=== PATIENT | male | born 1990 | race African-American/Black ===

== ENCOUNTER 2019-04-21 14:46 | Inpatient (IN) | payer OTHER ==
[2019-04-21 15:10] VITALS: BMI 23.7
--- NOTE | 2019-04-21 17:49 | HP ---
COWS - Scale Resting Pulse: 1= [place] 81-100 Sweatin=Flushed/Facial Moisture Restless Observation: 0= Sits Still Pupil Size: 2= Moderately Dilated (Pupils = 4 mm) Bone or Joint Aches: 1= Mild Discomfort Runny Nose/ Eye Tearin= Nasal Congestion GI Upset > 30mins: 5=Frequent Vomit/Diarrhea (Continuous, observed vomiting;) Tremor Observation: 2= Slight Tremor Visible Yawning Observation: 0= None Anxiety or Irritability: 0= None Goose Flesh Skin: 0=Smooth Skin COWS Score: 14 CIWA Score - Admission Criteria OASAS Guidelines: Admission for Medically Managed Detox: Requires at least one of the followin. CIWA greater than 12 2. Seizures within the past 24 hours 3. Delirium tremens within the past 24 hours 4. Hallucinations within the past 24 hours 5. Acute intervention needed for co occurring medical disorder 6. Acute intervention needed for co occurring psychiatric disorder 7. Severe withdrawal that cannot be handled at a lower level of care (continued vomiting, continued diarrhea, abnormal vital signs) requiring intravenous medication and/or fluids 8. Admission ROS [facility] - [facility] Chief Complaint: I'm having percocet withdrawal symptoms. Allergies/Adverse Reactions: Allergies Allergy/AdvReac Type Severity Reaction Status Date / Time clonazepam [From Klonopin] Allergy Severe Verified 04/21/19 15:04 History of Present Illness: Referred to [facility] after being seen at [facility] and treated for vomiting and abdominal pain and noted to have substance use disorder. Given Ativan and Zofran while in ED. EKG also completed while in ED. 29 yo presents now to [facility] with percocet withdrawal symptoms seeking detox. States I also need help for alcohol and marijuana. Percocet use began at age 18. Current takes 10- 10 mg tabs/day. Illicit use. States was given Suboxone Alcohol use began at age 15. States drinks 2-3 drinks q 2-3 months. Marijuana use began at age 11. Smokes $10/day ( 2 blunts) Denies nicotine use. Denies seizures or overdoses. Blackouts from drinking - last @ age [age]. PMHx: Asthma (last exacerbation as a young child); MHHx: Bi-polar. schizophrenia. Last saw a MH Provider 3-4 months ago. States not taking Seroquel x 3 -4 months. SHx: Homeless. Unemployed. Legal: Suspended license; Scheduled for incarceration in May. Search Terms: Yuniel Boo, 1990 Search Date: 04/21/2019 05:49:08 PM The Drug Utilization Report below displays all of the controlled substance prescriptions, if any, that your patient has filled in the last twelve months. The information displayed on this report is compiled from pharmacy submissions to the Department, and accurately reflects the information as submitted by the pharmacies. This report was requested by: Georgette Tyler | Reference #: [id number] There are no results for the search terms that you entered. Search Terms: Yuniel Boo, 1990 Search Date: 04/21/2019 05:53:23 PM States Searched: [place], [place], [place], [place], [place], [place], [place], [place] The Drug Utilization Report below displays the controlled substance prescriptions, if any, that were dispensed in the indicated state(s). The information displayed on this report is compiled from requests submitted to other states' PMPs, and accurately reflects the information as returned by them. Blank hammer indicate data not provided by other state. This report was requested by: Georgette Tyler | Reference #: [id number] There are no results for the search terms that you entered. Exam Limitations: Other (Vomiting) - Ebola screening Have you traveled outside of the country in the last 21 days: No Have you had contact with anyone from an Ebola affected area: No - Review of Systems Constitutional: No Symptoms Reported, Diaphoresis EENT: reports: No Symptoms Reported Respiratory: reports: No Symptoms reported Cardiac: reports: No Symptoms Reported GI: reports: Diarrhea (watery, yellowish, x 4), Nausea, Vomiting, Abdominal cramping (r/t to withdrawal) : reports: No Symptoms Reported Musculoskeletal: reports: Back Pain (r/t to withdrawal) Integumentary: reports: No Symptoms Reported Neuro: reports: Headache, Tremors Endocrine: reports: No Symptoms Reported Hematology: reports: No Symptoms Reported Psychiatric: reports: Orientated x3, Agitated, Anxious, Depressed Patient History - PPD History Previous Implant?: Yes Documented Results: Negative w/proof Implanted On Prior [facility] Admission?: No PPD to be Administered?: Yes - Smoking Cessation Smoking history: Never smoked Initiated information on smoking cessation: No - Substance & Tx. History Hx Alcohol Use: No Hx Substance Use: Yes Substance Use Type: Marijuana, Opiates Hx Substance Use Treatment: Yes (out-patient detox) - Substances abused Other Other (specify): percocet Substance route: Oral Frequency: Daily Amount used: 10 pills Age of first use: 18 Date of last use: 04/20/19 Alcohol Substance route: Oral Frequency: 1-3 times last 30 days Amount used: " I really dont drink" Age of first use: 15 Date of last use: 04/18/19 Admission Physical Exam [facility] - Vital Signs Vital Signs: Vital Signs - 24 hr 04/21/19 15:03 Temperature 96.7 F L Pulse Rate 65 Respiratory 18 Rate Blood Pressure 134/72 - Physical General Appearance: Yes: Nourished, Moderate Distress, Tremorous, Sweating ( Increased facial moisture) HEENTM: Yes: Hearing grossly Normal, Normocephalic, Normal Voice, AMY (Pupils = 4 mm), Pharynx Normal Respiratory: Yes: Lungs Clear (Pulse Ox = 99 %), Normal Breath Sounds, No Respiratory Distress Neck: Yes: No masses,lesions,Nodules, Supple Breast: Yes: Breast Exam Deferred Cardiology: Yes: Regular Rhythm, Regular Rate, S1, S2 Abdominal: Yes: Non Tender, Flat, Soft, Increased Bowel Sounds, Other ( Continuous, observed vomiting - greenish/yellowish fluid) Genitourinary: Yes: Within Normal Limits Back: Yes: Normal Inspection Musculoskeletal: Yes: full range of Motion, Gait Steady Extremities: Yes: Normal Capillary Refill, Tremors (Mild tremors) Neurological: Yes: Fully Oriented, Alert, Motor Strength 5/5, Normal Response Integumentary: Yes: Normal Color, Warm, Diaphoresis (Increased facial moisture) Lymphatic: Yes: Within Normal Limits - Diagnostic (1) Opioid dependence with withdrawal Current Visit: Yes Status: Acute (2) Alcohol abuse, uncomplicated Current Visit: Yes Status: Chronic (3) Cannabis dependence, uncomplicated Current Visit: Yes Status: Chronic Cleared for Admission [facility] - Detox or Rehab [facility] Level of Care: Medically Managed Detox Regimen/Protocol: Methadone Claeared for Rehab Admission: No Breathalyzer - Breathalyzer Breathalyzer: 0 Urine Drug Screen - Test Device Lot number: [id number] Expiration date: 12/06/20 - Control Is test valid?: Yes - Results Drug screen NEGATIVE: No Urine drug screen results: THC-Marijuana, OXY-Oxycodone Inpatient Rehab Admission - Rehab Decision to Admit Inpatient rehab admission?: No
[2019-04-21] MEDS ORDERED: BISMUTH SUBSALICYLATE 524 MG/30 ML UD PO PRN (18:27)
[2019-04-21] MEDS ORDERED: ACETAMINOPHEN 325 MG TABLET (FP) PO PRN ×2 (18:27)
[2019-04-21] MEDS ORDERED: ONDANSETRON *ODT* 4 MG TABLET SL PRN (18:27)
[2019-04-21] MEDS ORDERED: MAGNESIUM CITRATE 300 ML BOTTLE PO PRN (18:27)
[2019-04-21] MEDS ORDERED: MAGNESIUM HYDROX 2400MG/30ML ORAL SUSPENSION 30 ML CUP PO PRN (18:27)
[2019-04-21] MEDS ORDERED: IBUPROFEN 400 MG TABLET (FP) PO PRN (18:27)
[2019-04-21] MEDS ORDERED: MAG HYDROX/AL HYDROX/SIMETH 30 ML UNIT-DOSE CUP PO PRN (18:27)
[2019-04-21] MEDS ORDERED: MENTHOL/PHENOL 1 EACH UD MM PRN (18:27)
[2019-04-21] MEDS ORDERED: METHADONE HCL 10 MG TABLET (FOR DETOX USE ONLY) PO ONE (18:32)
[2019-04-21] MEDS ORDERED: cloNIDine HCL 0.1 MG TABLET PO PRN (18:32)
[2019-04-21] MEDS ORDERED: TRIMETHOBENZAMIDE HCL 200MG/2ML INJ IM ONE (19:00)
[2019-04-21] MEDS: THIAMINE HCL 100 MG TABLET (FP) PO SCH (23:09)
[2019-04-21] MEDS: chlordiazePOXIDE HCL 10 MG CAPSULE PO SCH (23:09)
[2019-04-21] MEDS: MELATONIN 5 MG TABLETS PO PRN (23:09)
[2019-04-22] MEDS: chlordiazePOXIDE HCL 10 MG CAPSULE PO SCH ×4 (05:48→23:02)
[2019-04-22 09:35] LABS: HEMOGLOBIN 14.1 GM/dL (11.7-16.9); MCH 30.8 pg (25.7-33.7); MCHC 32.8 g/dl (32.0-35.9); MEAN CELL VOLUME 93.9 fl (80-96); MEAN PLT VOLUME 9.7 fl (7.5-11.1); PLATELET COUNT 280 K/MM3 (134-434); RBC 4.58 M/mm3 (4.00-5.60); WHITE BLOOD COUNT 13.3 K/mm3 (4.0-10.0)
[2019-04-22 09:52] LABS: ALBUMIN 4.1 g/dl (3.4-5.0); BILIRUBIN,TOTAL 0.6 mg/dL (0.2-1); BLOOD UREA NITROGEN 19.4 mg/dL (7-18); CALCIUM 9.6 mg/dL (8.5-10.1); CREATININE 1.1 mg/dL (0.55-1.3); POTASSIUM 4.2 mmol/L (3.5-5.1); TOT PROT 7.7 g/dl (6.4-8.2)
[2019-04-22] MEDS: PRENATAL VITAMINS W/ FOLIC ACID TABLET (FP) PO SCH (09:54)
[2019-04-22] MEDS ORDERED: METHADONE HCL 5 MG TABLET (FOR DETOX USE ONLY) PO ONE (10:00)
[2019-04-22] MEDS ORDERED: guaiFENesin 200 MG/10 ML 10 ML UNIT-DOSE CUPS PO PRN (10:50)
--- NOTE | 2019-04-22 14:24 | PN ---
BHS COWS - Scale Resting Pulse: 0= [place] 80 or Below Sweatin= No chills or Flushing Restless Observation: 1= Difficult to Sit Still Pupil Size: 0= Normal to Room Light Bone or Joint Aches: 1= Mild Discomfort Runny Nose/ Eye Tearin= None GI Upset > 30mins: 1= Stomach Cramp Tremor Observation of Outstretched Hands: 0= None Yawning Observation: 1= 1-2x During Session Anxiety or Irritability: 2=Irritable/Anxious Goose Flesh Skin: 3=Piloerection COWS Score: 9 BHS Progress Note (SOAP) Subjective: Anxious, Stomach Cramping, Interrupted Sleep. Objective: PATIENT A & O X 3, OBSERVED AMBULATING ON DETOX UNIT UNASSISTED. IN NO ACUTE DISTRESS. PATIENT AFEBRILE. 04/22/19 14:22 Vital Signs Temperature 97.5 F L 04/22/19 13:03 Pulse Rate 66 04/22/19 13:03 Respiratory Rate 18 04/22/19 13:03 Blood Pressure 123/69 04/22/19 13:03 O2 Sat by Pulse Oximetry (%) Laboratory Tests 04/22/19 04/22/19 04/22/19 07:50 07:50 07:50 WBC 13.3 H RBC 4.58 Hgb 14.1 Hct 43.0 MCV 93.9 MCH 30.8 MCHC 32.8 RDW 14.0 Plt Count 280 MPV 9.7 Sodium 139 Potassium 4.2 Chloride 101 Carbon Dioxide 27 Anion Gap 11 BUN 19.4 H Creatinine 1.1 Est GFR (CKD-EPI)AfAm 104.59 Est GFR (CKD-EPI)NonAf 90.24 Random Glucose 96 Calcium 9.6 Total Bilirubin 0.6 AST 25 ALT 31 Alkaline Phosphatase 79 Total Protein 7.7 Albumin 4.1 RPR Titer Nonreactive LABS NOTED. 04/22/19 14:25 Assessment: 04/22/19 14:23 WITHDRAWAL SYMPTOMS. LEUKOCYTOSIS. 04/22/19 14:23 Plan: CONTINUE DETOX. INCREASE DAILY PO WATER INTAKE. PATIENT DENIES HISTORY OF IVDU. PATIENT DENIES ANY UNUSUAL URINARY COMPLAINTS (BURNING, PAIN, FREQUENCY, URGENCY , HESITANCY, VISUALIZATION OF BLOOD IN URINE). PATIENT DENIES SOB AND CHEST PAIN. REPEAT CBC, UA ORDERED FOR TOMORROW AM DUE TO ELEVATED WBC LEVEL NOTED ON DETOX ADMISSION LABORATORY ASSESSMENT.
--- NOTE | 2019-04-22 15:46 | CONSULT ---
[facility] Psychiatric Consult - Data Date of interview: 04/22/19 Admission source: [facility] Identifying data: First visit at [facility] for this 29 y/o AA male self-referred for detoxification (ELVIN issues : alcohol, opioid, cannabis). Examined at [address] [place] [address]. Patient is single, no children, homeless, unemployed and dependent on relatives for financial support. Substance Abuse History: Discussed with the patient. Details in current [facility] report as follows : Smoking history: Never smoked. Initiated information on smoking cessation: No. Substance & Tx. History. Hx Alcohol Use: No. Hx Substance Use: Yes. Substance Use Type: Marijuana, Opiates. Hx Substance Use Treatment: Yes (out-patient detox). - Substances abused. Other. Other ( specify): percocet. Substance route: Oral. Frequency: Daily. Amount used: 10 pills. Age of first use: 18. Date of last use: 04/20/19. Alcohol. Substance route: Oral. Frequency: 1-3 times last 30 days. Amount used: " I really dont drink". Age of first use: 15. Date of last use: 04/18/19 Medical History: Bronchial asthma. Psychiatric History: Patient admits to a history of multiple psychiatric hospitalizations ([facility], [facility]). Diagnosed with schizophrenia. Mr Boo states that he has not taken medications (seroquel , depakote, haldol) for several weeks. No recall of location/name of OPD clinic. Denies recent contact with psychiatrists. No history of suicide attempts. Physical/Sexual Abuse/Trauma History: Patient declines to discuss this domain. Mr Boo reports that he was given the choice between admission to a hospital or incarceration. Additional Comment: Urine drug screen results: THC-Marijuana, OXY-Oxycodone. Noted. Mental Status Exam - Mental Status Exam Alert and Oriented to: Time, Place, Person Cognitive Function: Good Patient Appearance: Well Groomed Mood: Withdrawn Affect: Blunted Patient Behavior: Passive, Guarded Speech Pattern: Clear Voice Loudness: Normal Thought Process: Circumstantial Hallucinations: Denies Suicidal Ideation: Denies Homicidal Ideation: Denies Insight/Judgement: Poor Sleep: Well Appetite: Good Muscle strength/Tone: Normal Gait/Station: Normal Psychiatric Findings - Problem List ([place] 1, 2,3) (1) Schizophrenia Current Visit: Yes Status: Chronic Comment: As per self-report. (2) Opioid dependence with withdrawal Current Visit: Yes Status: Acute (3) Alcohol abuse, uncomplicated Current Visit: Yes Status: Chronic (4) Cannabis dependence, uncomplicated Current Visit: Yes Status: Chronic (5) Substance induced mood disorder Current Visit: Yes Status: Chronic (6) Non-compliance Current Visit: Yes Status: Chronic - Initial Treatment Plan Initial Treatment Plan: Psychoeducation. Sleep hygiene. Detoxification. Patient agrees to restart seroquel 100 mg po bid. Side effects/benefits are discussed with the patient. Observation.
[2019-04-22] MEDS: THIAMINE HCL 100 MG TABLET (FP) PO SCH (22:00)
[2019-04-22] MEDS: MELATONIN 5 MG TABLETS PO PRN (22:00)
[2019-04-22] MEDS: QUEtiapine FUMARATE 100 MG TABLET (FP) PO SCH (22:00)
[2019-04-23] MEDS: chlordiazePOXIDE HCL 10 MG CAPSULE PO SCH ×4 (05:16→23:03)
[2019-04-23] MEDS ORDERED: METHADONE HCL 10 MG TABLET (FOR DETOX USE ONLY) PO ONE (10:00)
[2019-04-23] MEDS: PRENATAL VITAMINS W/ FOLIC ACID TABLET (FP) PO SCH (10:02)
[2019-04-23] MEDS: QUEtiapine FUMARATE 100 MG TABLET (FP) PO SCH ×2 (10:02→22:03)
--- NOTE | 2019-04-23 11:44 | PN ---
BHS COWS - Scale Resting Pulse: 0= [place] 80 or Below Sweatin= Chills/Flushing Restless Observation: 1= Difficult to Sit Still Pupil Size: 0= Normal to Room Light Bone or Joint Aches: 1= Mild Discomfort Runny Nose/ Eye Tearin= Runny Nose/Eyes GI Upset > 30mins: 1= Stomach Cramp Tremor Observation of Outstretched Hands: 0= None Yawning Observation: 0= None Anxiety or Irritability: 2=Irritable/Anxious Goose Flesh Skin: 0=Smooth Skin COWS Score: 8 BHS Progress Note (SOAP) Subjective: patient is here for opioid detox w/ methadone d/t opioid use disorder c/o anxious, fatigue, constipation, interrupted sleep Objective: 04/23/19 11:39 Vital Signs Temperature 97.4 F L 04/23/19 09:11 Pulse Rate 76 04/23/19 09:11 Respiratory Rate 18 04/23/19 09:11 Blood Pressure 114/75 04/23/19 09:11 O2 Sat by Pulse Oximetry (%) Laboratory Last Values WBC 13.3 K/mm3 (4.0-10.0) H 04/22/19 07:50 RBC 4.58 M/mm3 (4.00-5.60) 04/22/19 07:50 Hgb 14.1 GM/dL (11.7-16.9) 04/22/19 07:50 Hct 43.0 % (35.4-49) 04/22/19 07:50 MCV 93.9 fl (80-96) 04/22/19 07:50 MCH 30.8 pg (25.7-33.7) 04/22/19 07:50 MCHC 32.8 g/dl (32.0-35.9) 04/22/19 07:50 RDW 14.0 % (11.9-15.9) 04/22/19 07:50 Plt Count 280 K/MM3 (134-434) 04/22/19 07:50 MPV 9.7 fl (7.5-11.1) 04/22/19 07:50 Sodium 139 mmol/L (136-145) 04/22/19 07:50 Potassium 4.2 mmol/L (3.5-5.1) 04/22/19 07:50 Chloride 101 mmol/L (98-107) 04/22/19 07:50 Carbon Dioxide 27 mmol/L (21-32) 04/22/19 07:50 Anion Gap 11 MMOL/L (8-16) 04/22/19 07:50 BUN 19.4 mg/dL (7-18) H 04/22/19 07:50 Creatinine 1.1 mg/dL (0.55-1.3) 04/22/19 07:50 Est GFR (CKD-EPI)AfAm 104.59 04/22/19 07:50 Est GFR (CKD-EPI)NonAf 90.24 04/22/19 07:50 Random Glucose 96 mg/dL (74-106) 04/22/19 07:50 Calcium 9.6 mg/dL (8.5-10.1) 04/22/19 07:50 Total Bilirubin 0.6 mg/dL (0.2-1) 04/22/19 07:50 AST 25 U/L (15-37) 04/22/19 07:50 ALT 31 U/L (13-61) 04/22/19 07:50 Alkaline Phosphatase 79 U/L (45-117) 04/22/19 07:50 Total Protein 7.7 g/dl (6.4-8.2) 04/22/19 07:50 Albumin 4.1 g/dl (3.4-5.0) 04/22/19 07:50 RPR Titer Nonreactive (NONREACTIVE) 04/22/19 07:50 repeat labs pending Assessment: 04/23/19 11:41 Aox3 no acute distress no adventitious breath sounds Full ROM no gait disturbance withdrawal sx Plan: increase fluids continue detox continue to monitor
[2019-04-23 12:01] LABS: BASO % 0.7 % (0-2.0); EOS % 1.7 % (0-4.5); HEMATOCRIT 39.7 % (35.4-49); HEMOGLOBIN 13.4 GM/dL (11.7-16.9); LYMPH % 43.7 % (8-40); MCH 31.3 pg (25.7-33.7); MCHC 33.7 g/dl (32.0-35.9); MEAN CELL VOLUME 92.8 fl (80-96); MEAN PLT VOLUME 9.3 fl (7.5-11.1); MONO % 8.7 % (3.8-10.2); NEUT % 45.2 % (42.8-82.8); PLATELET COUNT 258 K/MM3 (134-434); RBC 4.28 M/mm3 (4.00-5.60); RDW 13.7 % (11.9-15.9); WHITE BLOOD COUNT 8.4 K/mm3 (4.0-10.0)
[2019-04-23] MEDS: THIAMINE HCL 100 MG TABLET (FP) PO SCH (22:02)
[2019-04-24] MEDS ORDERED: chlordiazePOXIDE 5 MG CAPSULE PO PRN (00:01)
[2019-04-24] MEDS ORDERED: METHADONE HCL 5 MG TABLET (FOR DETOX USE ONLY) PO ONE (06:00)
[2019-04-24 09:07] VITALS: BP 114/80; PULSE 87; TEMP 97.4
--- NOTE | 2019-04-24 09:15 | DS ---
[facility] Detox Discharge Summary Admission Date: 04/21/19 Discharge Date: 04/24/19 - History Present History: Alcohol Dependence, Opioid Dependence Additional Comments: 29 years old male admitted on 04/21/19 for alcohol and opioid withdrawal sx management did well with librium and methadone detox regimen alert oriented x 3 ambulating steady gait prefers to go to [facility] respiratory: clear lung bilaterally on auscultation abdomen soft no rebound tenderness extremities full range of motion skin warm and dry - Physical Exam Results Vital Signs: Vital Signs Temperature 97.4 F L 04/24/19 09:06 Pulse Rate 87 04/24/19 09:06 Respiratory Rate 18 04/24/19 09:06 Blood Pressure 114/80 04/24/19 09:06 O2 Sat by Pulse Oximetry (%) Pertinent Admission Physical Exam Findings: alcohol and opiate withdrawal sx Vital Signs Temperature 97.4 F L 04/24/19 09:06 Pulse Rate 87 04/24/19 09:06 Respiratory Rate 18 04/24/19 09:06 Blood Pressure 114/80 04/24/19 09:06 O2 Sat by Pulse Oximetry (%) Laboratory Last Values WBC 8.4 K/mm3 (4.0-10.0) 04/23/19 08:00 RBC 4.28 M/mm3 (4.00-5.60) 04/23/19 08:00 Hgb 13.4 GM/dL (11.7-16.9) 04/23/19 08:00 Hct 39.7 % (35.4-49) 04/23/19 08:00 MCV 92.8 fl (80-96) 04/23/19 08:00 MCH 31.3 pg (25.7-33.7) 04/23/19 08:00 MCHC 33.7 g/dl (32.0-35.9) 04/23/19 08:00 RDW 13.7 % (11.9-15.9) 04/23/19 08:00 Plt Count 258 K/MM3 (134-434) 04/23/19 08:00 MPV 9.3 fl (7.5-11.1) 04/23/19 08:00 Absolute Neuts (auto) 3.8 K/mm3 (1.5-8.0) 04/23/19 08:00 Neutrophils % 45.2 % (42.8-82.8) 04/23/19 08:00 Lymphocytes % 43.7 % (8-40) H 04/23/19 08:00 Monocytes % 8.7 % (3.8-10.2) 04/23/19 08:00 Eosinophils % 1.7 % (0-4.5) 04/23/19 08:00 Basophils % 0.7 % (0-2.0) 04/23/19 08:00 Nucleated RBC % 0 % (0-0) 04/23/19 08:00 Sodium 139 mmol/L (136-145) 04/22/19 07:50 Potassium 4.2 mmol/L (3.5-5.1) 04/22/19 07:50 Chloride 101 mmol/L (98-107) 04/22/19 07:50 Carbon Dioxide 27 mmol/L (21-32) 04/22/19 07:50 Anion Gap 11 MMOL/L (8-16) 04/22/19 07:50 BUN 19.4 mg/dL (7-18) H 04/22/19 07:50 Creatinine 1.1 mg/dL (0.55-1.3) 04/22/19 07:50 Est GFR (CKD-EPI)AfAm 104.59 04/22/19 07:50 Est GFR (CKD-EPI)NonAf 90.24 04/22/19 07:50 Random Glucose 96 mg/dL (74-106) 04/22/19 07:50 Calcium 9.6 mg/dL (8.5-10.1) 04/22/19 07:50 Total Bilirubin 0.6 mg/dL (0.2-1) 04/22/19 07:50 AST 25 U/L (15-37) 04/22/19 07:50 ALT 31 U/L (13-61) 04/22/19 07:50 Alkaline Phosphatase 79 U/L (45-117) 04/22/19 07:50 Total Protein 7.7 g/dl (6.4-8.2) 04/22/19 07:50 Albumin 4.1 g/dl (3.4-5.0) 04/22/19 07:50 RPR Titer Nonreactive (NONREACTIVE) 04/22/19 07:50 lab noted - Treatment Hospital Course: Detox Protocol Followed, Detoxed Safely, Responded well, Discharged Condition Good, Rehab Referral Accepted Patient has Accepted a Rehab Referral to: [facility] - Medication Discharge Medications: Ambulatory Orders Naloxone HCl [Narcan] 4 mg NS ASDIR PRN #1 spray 04/24/19 - Diagnosis (1) Opioid dependence with withdrawal Current Visit: Yes Status: Acute (2) Alcohol abuse, uncomplicated Current Visit: Yes Status: Acute (3) Substance induced mood disorder Current Visit: Yes Status: Suspected - AMA Did Patient Leave Against Medical Advice: No CIWA Score - CIWA Score Nausea/Vomitin-No Nausea/No Vomiting Muscle Tremors: 2 Anxiety: 2 Agitation: 2 Paroxysmal Sweats: No Perspiration Orientation: 0-Oriented Tacttile Disturbances: 0-None Auditory Disturbances: 0-None Visual Disturbances: 0-None Headache: 0-None Present CIWA-Ar Total Score: 6 COWS (PN) - Opiate Withdrawal Resting Pulse: 1= [place] 81-100 Sweatin= Chills/Flushing Restless Observation: 0= Sits Still Pupil Size: 0= Normal to Room Light Bone or Joint Aches: 1= Mild Discomfort Runny Nose/ Eye Tearin= None GI Upset > 30mins: 0= None Tremor Observation of Outstretched Hands: 0= None Yawning Observation: 0= None Anxiety or Irritability: 1=Feels Anxious/Irritable Goose Flesh Skin: 0=Smooth Skin COWS Score: 4
[2019-04-24] MEDS: QUEtiapine FUMARATE 100 MG TABLET (FP) PO SCH (10:26)
[2019-04-24] MEDS: PRENATAL VITAMINS W/ FOLIC ACID TABLET (FP) PO SCH (10:26)
== END 2019-04-24 11:23 | disposition home or self-care (01) | DRG 773 ==
LOC: YASAS 14:46 → Y3N 19:59
PROVIDERS: ADMIT Allergy & Immunology; ATTEND Allergy & Immunology
PROC: HZ2ZZZZ Detoxification Services for Substance Abuse Treatment (ICD-10-PCS; principal; 2019-04-21)
DX: F10.230 Alcohol dependence with withdrawal, uncomplicated (principal); F11.23 Opioid dependence with withdrawal; F12.20 Cannabis dependence, uncomplicated; F19.24 Other psychoactive substance dependence with psychoactive substance-induced mood disorder; F20.9 Schizophrenia, unspecified; F31.9 Bipolar disorder, unspecified; D72.829 Elevated white blood cell count, unspecified; Z88.8 Allergy status to other drugs, medicaments and biological substances; Z87.09 Personal history of other diseases of the respiratory system; Z59.0 Homelessness; Z91.19 Patient's noncompliance with other medical treatment and regimen
CPT/HCPCS: 36415; 80053; 85025; 85027; 86593

== ENCOUNTER 2019-04-28 16:15 | Inpatient (IN) | payer OTHER ==
[2019-04-28 21:03] VITALS: BMI 24.7
--- NOTE | 2019-04-29 00:05 | HP ---
COWS - Scale Resting Pulse: 0= [place] 80 or Below Sweatin=Flushed/Facial Moisture Restless Observation: 0= Sits Still Pupil Size: 1= Pupils >than Normal Bone or Joint Aches: 4=Acute Joint/Muscle Pain Runny Nose/ Eye Tearin= Runny Nose/Eyes GI Upset > 30mins: 3= Vomiting/Diarrhea (vomiting x 3) Tremor Observation: 2= Slight Tremor Visible Yawning Observation: 1= 1-2x During Session Anxiety or Irritability: 1=Feels Anxious/Irritable Goose Flesh Skin: 3=Piloerection COWS Score: 19 CIWA Score - Admission Criteria OASAS Guidelines: Admission for Medically Managed Detox: Requires at least one of the followin. CIWA greater than 12 2. Seizures within the past 24 hours 3. Delirium tremens within the past 24 hours 4. Hallucinations within the past 24 hours 5. Acute intervention needed for co occurring medical disorder 6. Acute intervention needed for co occurring psychiatric disorder 7. Severe withdrawal that cannot be handled at a lower level of care (continued vomiting, continued diarrhea, abnormal vital signs) requiring intravenous medication and/or fluids 8. Admitting History and Physical - Smoking History Smoking history: Never smoked - Alcohol/Substance Use Hx Alcohol Use: No Admission ROS S - HPI Chief Complaint: OPioid (Percocet) withdrawal symptoms Allergies/Adverse Reactions: Allergies Allergy/AdvReac Type Severity Reaction Status Date / Time clonazepam [From Klonopin] Allergy Severe Verified 04/28/19 20:49 Egg Derived Allergy Mild Vomiting Verified 04/28/19 20:49 History of Present Illness: 29 years old male with 9 years of opioid (Percocet) abuse is seeking admission to detox. Patient was admitted in detox for the period 04/21/2019- 04/24/2019. Patient reports that his detoxification was inadequate because he was discharged too early and relapsed as soon as he left detox. He is being admitted because he is in acute withdrawal at this time. He has medical history of asthma and denies suicidal ideation at this time Exam Limitations: Clinical Condition - Ebola screening Have you traveled outside of the country in the last 21 days: No Have you had contact with anyone from an Ebola affected area: No Do you have a fever: No - Review of Systems Constitutional: Loss of Appetite, Changes in sleep EENT: reports: No Symptoms Reported Respiratory: reports: No Symptoms reported Cardiac: reports: No Symptoms Reported GI: reports: Nausea, Poor Appetite, Poor Fluid Intake, Vomiting, Abdominal cramping : reports: No Symptoms Reported Musculoskeletal: reports: Back Pain, Joint Pain Integumentary: reports: Dryness, Flushing Neuro: reports: No Symptoms reported, Tremors Endocrine: reports: No Symptoms Reported Hematology: reports: No Symptoms Reported Psychiatric: reports: No Sypmtoms Reported, Anxious, Depressed Other Systems: Reviewed and Negative Patient History - Patient Medical History Hx Anemia: No Hx Asthma: Yes (Albuterol) Hx Chronic Obstructive Pulmonary Disease (COPD): No Hx Cancer: No Hx Cardiac Disorders: No Hx Hypertension: No Hx Hypercholesterolemia: No Hx Pacemaker: No HX Cerebrovascular Accident: No Hx Seizures: No Hx Diabetes: No Hx Gastrointestinal Disorders: No Hx Genitourinary Disorders: No Hx Sexually Transmitted Disorders: No Hx Renal Disease (ESRD): No Hx Thyroid Disease: No Hx Human Immunodeficiency Virus (HIV): No (Negative 2018) Hx Hepatitis C: No Hx Depression: Yes Hx Suicide Attempt: No Hx Bipolar Disorder: No Hx Schizophrenia: No - Patient Surgical History Past Surgical History: Yes - PPD History Previous Implant?: No Documented Results: Positive w/proof Implanted On Prior R Admission?: Yes Date: 04/23/19 PPD to be Administered?: No - Reproductive History Patient is a Female of Child Bearing Age (11 -55 yrs old): No (MALE) - Smoking Cessation Smoking history: Never smoked - Substance & Tx. History Hx Alcohol Use: No Substance Use Type: Opiates Hx Substance Use Treatment: No - Substances abused Other Other (specify): percocet Substance route: Oral Frequency: Daily Amount used: 7 pills Age of first use: 18 Date of last use: 04/27/19 Alcohol Substance route: Oral Frequency: 1-3 times last 30 days Amount used: " I really dont drink" Age of first use: 15 Date of last use: 04/18/19 Admission Physical Exam BHS - Vital Signs Vital Signs: Vital Signs - 24 hr 04/28/19 20:58 Temperature 99.5 F Pulse Rate 74 Respiratory 14 Rate Blood Pressure 143/63 - Physical General Appearance: Yes: Within Normal Limits, Nourished, Appropriately Dressed HEENTM: Yes: EOMI, Normal ENT Inspection, Normal Voice, AMY Respiratory: Yes: Lungs Clear, Normal Breath Sounds, No Respiratory Distress Neck: Yes: Supple Breast: Yes: Breast Exam Deferred Cardiology: Yes: Within Normal Limits, Regular Rhythm, Regular Rate Abdominal: Yes: Normal Bowel Sounds, Soft Genitourinary: Yes: Within Normal Limits Back: Yes: Normal Inspection Musculoskeletal: Yes: Within Normal Limits Extremities: Yes: Tremors Neurological: Yes: Within Normal Limits Integumentary: Yes: Warm Lymphatic: Yes: Within Normal Limits - Diagnostic (1) Opioid dependence with withdrawal Current Visit: No Status: Acute (2) Cannabis dependence, uncomplicated Current Visit: No Status: Chronic (3) Nicotine dependence Current Visit: Yes Status: Chronic Qualifiers: Nicotine product type: cigarettes Substance use status: uncomplicated Qualified Code(s): F17.210 - Nicotine dependence, cigarettes, uncomplicated Cleared for Admission [facility] - Detox or Rehab [facility] Level of Care: Medically Managed Detox Regimen/Protocol: Methadone Claeared for Rehab Admission: No Breathalyzer - Breathalyzer Breathalyzer: 0 Urine Drug Screen - Test Device Lot number: [id number] Expiration date: 01/05/21 - Control Is test valid?: Yes - Results Drug screen NEGATIVE: Yes Urine drug screen results: THC-Marijuana, OXY-Oxycodone, BZO-Benzodiazepines Inpatient Rehab Admission - Rehab Decision to Admit Inpatient rehab admission?: No
[2019-04-29] MEDS ORDERED: METHADONE HCL 10 MG TABLET (FOR DETOX USE ONLY) PO ONE (00:35)
[2019-04-29] MEDS ORDERED: cloNIDine HCL 0.1 MG TABLET PO PRN ×2 (00:35→13:39)
[2019-04-29] MEDS ORDERED: MAGNESIUM CITRATE 300 ML BOTTLE PO PRN (00:36)
[2019-04-29] MEDS ORDERED: IBUPROFEN 400 MG TABLET (FP) PO PRN (00:36)
[2019-04-29] MEDS ORDERED: MAG HYDROX/AL HYDROX/SIMETH 30 ML UNIT-DOSE CUP PO PRN (00:36)
[2019-04-29] MEDS ORDERED: ACETAMINOPHEN 325 MG TABLET (FP) PO PRN ×2 (00:36)
[2019-04-29] MEDS ORDERED: MENTHOL/PHENOL 1 EACH UD MM PRN (00:36)
[2019-04-29] MEDS ORDERED: MELATONIN 5 MG TABLETS PO PRN (00:36)
[2019-04-29] MEDS ORDERED: NICOTINE POLACRILEX 2 MG GUM BUC PRN (00:36)
[2019-04-29] MEDS ORDERED: MAGNESIUM HYDROX 2400MG/30ML ORAL SUSPENSION 30 ML CUP PO PRN (00:36)
[2019-04-29] MEDS ORDERED: METHOCARBAMOL 500 MG TABLET PO PRN (00:36)
[2019-04-29] MEDS ORDERED: BISMUTH SUBSALICYLATE 524 MG/30 ML UD PO PRN (00:36)
[2019-04-29] MEDS: PRENATAL VITAMINS W/ FOLIC ACID TABLET (FP) PO SCH (09:24)
[2019-04-29] MEDS: NICOTINE 14 MG/24 HOURS TOPICAL PATCH TD SCH (09:24)
--- NOTE | 2019-04-29 11:36 | PN ---
[facility]HS COWS - Scale Resting Pulse: 1= [place] 81-100 Sweatin= Chills/Flushing Restless Observation: 0= Sits Still Pupil Size: 1= Pupils >than Normal Bone or Joint Aches: 2= Severe Diffuse Aches Runny Nose/ Eye Tearin= Nasal Congestion GI Upset > 30mins: 2= Nausea/Diarrhea (no diarrhea) Tremor Observation of Outstretched Hands: 2= Slight Tremor Visible Yawning Observation: 2= >3x During Session Anxiety or Irritability: 2=Irritable/Anxious Goose Flesh Skin: 3=Piloerection COWS Score: 17 S Progress Note (SOAP) Subjective: doing well with methadone detox regimen ate breakfast ambulating on hallway discuss medication assisted treatment program Objective: 04/29/19 11:38 Vital Signs Temperature 97.1 F L 04/29/19 09:16 Pulse Rate 81 04/29/19 09:16 Respiratory Rate 18 04/29/19 09:16 Blood Pressure 113/71 04/29/19 09:16 O2 Sat by Pulse Oximetry (%) 04/29/19 11:38 lab pending Assessment: 04/29/19 11:39 opiate withdrawal sx Plan: continue methadone detox regimen
--- NOTE | 2019-04-29 12:12 | EKG ---
Test Reason : Blood Pressure : / mmHG Vent. Rate : 057 BPM Atrial Rate : 057 BPM P-R Int : 156 ms QRS Dur : 090 ms QT Int : 378 ms P-R-T Axes : 068 061 053 degrees QTc Int : 367 ms SINUS BRADYCARDIA MODERATE VOLTAGE CRITERIA FOR LVH, MAY BE NORMAL VARIANT BORDERLINE ECG NO PREVIOUS ECGS AVAILABLE Confirmed by Jason Carter MD ([id number]) on 04/29/2019 12:11:52 PM Referred By: DELMIS Confirmed By:Jason Carter MD
[2019-04-29] MEDS ORDERED: diazePAM 5 MG TABLET PO PRN (12:47)
[2019-04-29] MEDS: THIAMINE HCL 100 MG TABLET (FP) PO SCH (22:26)
[2019-04-29] MEDS: hydrOXYzine PAMOATE 25 MG CAPSULE (FP) PO PRN (22:26)
[2019-04-30 09:45] LABS: HEMATOCRIT 38.4 % (35.4-49); HEMOGLOBIN 12.7 GM/dL (11.7-16.9); MCHC 33.2 g/dl (32.0-35.9); MEAN CELL VOLUME 93.5 fl (80-96); MEAN PLT VOLUME 9.5 fl (7.5-11.1); PLATELET COUNT 238 K/MM3 (134-434); RBC 4.11 M/mm3 (4.00-5.60); RDW 13.6 % (11.9-15.9); WHITE BLOOD COUNT 6.8 K/mm3 (4.0-10.0)
[2019-04-30] MEDS ORDERED: METHADONE HCL 5 MG TABLET (FOR DETOX USE ONLY) PO ONE (10:00)
[2019-04-30] MEDS: NICOTINE 14 MG/24 HOURS TOPICAL PATCH TD SCH (10:31)
[2019-04-30] MEDS: PRENATAL VITAMINS W/ FOLIC ACID TABLET (FP) PO SCH (10:31)
[2019-04-30 10:35] LABS: ALBUMIN 3.4 g/dl (3.4-5.0); BILIRUBIN,TOTAL 0.4 mg/dL (0.2-1); BLOOD UREA NITROGEN 9.5 mg/dL (7-18); CALCIUM 9.3 mg/dL (8.5-10.1); CREATININE 0.8 mg/dL (0.55-1.3); POTASSIUM 4.6 mmol/L (3.5-5.1); TOT PROT 6.4 g/dl (6.4-8.2)
--- NOTE | 2019-04-30 12:23 | PN ---
BHS COWS - Scale Resting Pulse: 0= [place] 80 or Below Sweatin= Chills/Flushing Restless Observation: 0= Sits Still Pupil Size: 1= Pupils >than Normal Bone or Joint Aches: 1= Mild Discomfort Runny Nose/ Eye Tearin= Nasal Congestion GI Upset > 30mins: 0= None Tremor Observation of Outstretched Hands: 1= Tremor [place], Not Seen Yawning Observation: 0= None Anxiety or Irritability: 2=Irritable/Anxious Goose Flesh Skin: 3=Piloerection COWS Score: 10 BHS Progress Note (SOAP) Subjective: doing well with methadone detox regimen less tremor mild anxiety able to sitting on chair sleep better at night Objective: 04/30/19 12:30 Vital Signs Temperature 97.0 F L 04/30/19 09:14 Pulse Rate 67 04/30/19 09:14 Respiratory Rate 18 04/30/19 09:14 Blood Pressure 116/64 04/30/19 09:14 O2 Sat by Pulse Oximetry (%) Laboratory Last Values WBC 6.8 K/mm3 (4.0-10.0) 04/30/19 08:15 RBC 4.11 M/mm3 (4.00-5.60) 04/30/19 08:15 Hgb 12.7 GM/dL (11.7-16.9) 04/30/19 08:15 Hct 38.4 % (35.4-49) 04/30/19 08:15 MCV 93.5 fl (80-96) 04/30/19 08:15 MCH 31.0 pg (25.7-33.7) 04/30/19 08:15 MCHC 33.2 g/dl (32.0-35.9) 04/30/19 08:15 RDW 13.6 % (11.9-15.9) 04/30/19 08:15 Plt Count 238 K/MM3 (134-434) 04/30/19 08:15 MPV 9.5 fl (7.5-11.1) 04/30/19 08:15 Sodium 141 mmol/L (136-145) 04/30/19 08:15 Potassium 4.6 mmol/L (3.5-5.1) 04/30/19 08:15 Chloride 104 mmol/L (98-107) 04/30/19 08:15 Carbon Dioxide 32 mmol/L (21-32) 04/30/19 08:15 Anion Gap 5 MMOL/L (8-16) L 04/30/19 08:15 BUN 9.5 mg/dL (7-18) 04/30/19 08:15 Creatinine 0.8 mg/dL (0.55-1.3) 04/30/19 08:15 Est GFR (CKD-EPI)AfAm 139.91 04/30/19 08:15 Est GFR (CKD-EPI)NonAf 120.72 04/30/19 08:15 Random Glucose 84 mg/dL (74-106) 04/30/19 08:15 Calcium 9.3 mg/dL (8.5-10.1) 04/30/19 08:15 Total Bilirubin 0.4 mg/dL (0.2-1) 04/30/19 08:15 AST 16 U/L (15-37) 04/30/19 08:15 ALT 21 U/L (13-61) 04/30/19 08:15 Alkaline Phosphatase 60 U/L (45-117) 04/30/19 08:15 Total Protein 6.4 g/dl (6.4-8.2) 04/30/19 08:15 Albumin 3.4 g/dl (3.4-5.0) 04/30/19 08:15 RPR Titer Nonreactive (NONREACTIVE) 04/30/19 08:15 lab noted Assessment: 04/30/19 12:30 opiate withdrawal sx Plan: continue methadone detox regimen
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
[2019-04-30] MEDS: THIAMINE HCL 100 MG TABLET (FP) PO SCH (22:18)
[2019-04-30] MEDS: hydrOXYzine PAMOATE 25 MG CAPSULE (FP) PO PRN (22:18)
[2019-05-01 09:23] VITALS: BP 121/73; PULSE 60; TEMP 96.4
[2019-05-01] MEDS ORDERED: METHADONE HCL 10 MG TABLET (FOR DETOX USE ONLY) PO ONE (10:00)
[2019-05-01] MEDS: NICOTINE 14 MG/24 HOURS TOPICAL PATCH TD SCH (10:30)
[2019-05-01] MEDS: PRENATAL VITAMINS W/ FOLIC ACID TABLET (FP) PO SCH (10:30)
--- NOTE | 2019-05-01 11:04 | PN ---
BHS COWS - Scale Resting Pulse: 0= [place] 80 or Below Sweatin= Chills/Flushing Restless Observation: 0= Sits Still Pupil Size: 0= Normal to Room Light Bone or Joint Aches: 1= Mild Discomfort Runny Nose/ Eye Tearin= None GI Upset > 30mins: 1= Stomach Cramp Tremor Observation of Outstretched Hands: 1= Tremor [place], Not Seen Yawning Observation: 0= None Anxiety or Irritability: 1=Feels Anxious/Irritable Goose Flesh Skin: 0=Smooth Skin COWS Score: 5 BHS Progress Note (SOAP) Subjective: doing well with methadone detox regimen mild body aches discuss aftercare with staff encourage medication assisted treatment program Objective: 05/01/19 11:03 Vital Signs Temperature 96.4 F L 05/01/19 09:22 Pulse Rate 60 05/01/19 09:22 Respiratory Rate 18 05/01/19 09:22 Blood Pressure 121/73 05/01/19 09:22 O2 Sat by Pulse Oximetry (%) Laboratory Last Values WBC 6.8 K/mm3 (4.0-10.0) 04/30/19 08:15 RBC 4.11 M/mm3 (4.00-5.60) 04/30/19 08:15 Hgb 12.7 GM/dL (11.7-16.9) 04/30/19 08:15 Hct 38.4 % (35.4-49) 04/30/19 08:15 MCV 93.5 fl (80-96) 04/30/19 08:15 MCH 31.0 pg (25.7-33.7) 04/30/19 08:15 MCHC 33.2 g/dl (32.0-35.9) 04/30/19 08:15 RDW 13.6 % (11.9-15.9) 04/30/19 08:15 Plt Count 238 K/MM3 (134-434) 04/30/19 08:15 MPV 9.5 fl (7.5-11.1) 04/30/19 08:15 Sodium 141 mmol/L (136-145) 04/30/19 08:15 Potassium 4.6 mmol/L (3.5-5.1) 04/30/19 08:15 Chloride 104 mmol/L (98-107) 04/30/19 08:15 Carbon Dioxide 32 mmol/L (21-32) 04/30/19 08:15 Anion Gap 5 MMOL/L (8-16) L 04/30/19 08:15 BUN 9.5 mg/dL (7-18) 04/30/19 08:15 Creatinine 0.8 mg/dL (0.55-1.3) 04/30/19 08:15 Est GFR (CKD-EPI)AfAm 139.91 04/30/19 08:15 Est GFR (CKD-EPI)NonAf 120.72 04/30/19 08:15 Random Glucose 84 mg/dL (74-106) 04/30/19 08:15 Calcium 9.3 mg/dL (8.5-10.1) 04/30/19 08:15 Total Bilirubin 0.4 mg/dL (0.2-1) 04/30/19 08:15 AST 16 U/L (15-37) 04/30/19 08:15 ALT 21 U/L (13-61) 04/30/19 08:15 Alkaline Phosphatase 60 U/L (45-117) 04/30/19 08:15 Total Protein 6.4 g/dl (6.4-8.2) 04/30/19 08:15 Albumin 3.4 g/dl (3.4-5.0) 04/30/19 08:15 RPR Titer Nonreactive (NONREACTIVE) 04/30/19 08:15 lab noted Assessment: 05/01/19 11:03 opiate withdrawal sx grape picker narcan from pharmacy Plan: continue methadone detox regimen
--- NOTE | 2019-05-01 15:16 | DS ---
[facility] Detox Discharge Summary Admission Date: 04/29/19 Discharge Date: 05/01/19 - History Present History: Opioid Dependence Additional Comments: 29 years old male admitted on04/29/19 for opiate withdrawal sx management did well with methadone detox regimen no complication throgh out the detox staty alert oriented x 3 cardiac S1S2 regular rate rhythm respiratory clear lung bilaterally on auscultation abdomen soft no rebound tenderness Pertinent Past History: patient requests discharge early today strong recommend the patient to consider methadone maintenance program and picker / packer narcan from pharmacy - Physical Exam Results Vital Signs: Vital Signs Temperature 96.4 F L 05/01/19 09:22 Pulse Rate 60 05/01/19 09:22 Respiratory Rate 18 05/01/19 09:22 Blood Pressure 121/73 05/01/19 09:22 O2 Sat by Pulse Oximetry (%) Pertinent Admission Physical Exam Findings: opiate withdrawal sx Laboratory Last Values WBC 6.8 K/mm3 (4.0-10.0) 04/30/19 08:15 RBC 4.11 M/mm3 (4.00-5.60) 04/30/19 08:15 Hgb 12.7 GM/dL (11.7-16.9) 04/30/19 08:15 Hct 38.4 % (35.4-49) 04/30/19 08:15 MCV 93.5 fl (80-96) 04/30/19 08:15 MCH 31.0 pg (25.7-33.7) 04/30/19 08:15 MCHC 33.2 g/dl (32.0-35.9) 04/30/19 08:15 RDW 13.6 % (11.9-15.9) 04/30/19 08:15 Plt Count 238 K/MM3 (134-434) 04/30/19 08:15 MPV 9.5 fl (7.5-11.1) 04/30/19 08:15 Sodium 141 mmol/L (136-145) 04/30/19 08:15 Potassium 4.6 mmol/L (3.5-5.1) 04/30/19 08:15 Chloride 104 mmol/L (98-107) 04/30/19 08:15 Carbon Dioxide 32 mmol/L (21-32) 04/30/19 08:15 Anion Gap 5 MMOL/L (8-16) L 04/30/19 08:15 BUN 9.5 mg/dL (7-18) 04/30/19 08:15 Creatinine 0.8 mg/dL (0.55-1.3) 04/30/19 08:15 Est GFR (CKD-EPI)AfAm 139.91 04/30/19 08:15 Est GFR (CKD-EPI)NonAf 120.72 04/30/19 08:15 Random Glucose 84 mg/dL (74-106) 04/30/19 08:15 Calcium 9.3 mg/dL (8.5-10.1) 04/30/19 08:15 Total Bilirubin 0.4 mg/dL (0.2-1) 04/30/19 08:15 AST 16 U/L (15-37) 04/30/19 08:15 ALT 21 U/L (13-61) 04/30/19 08:15 Alkaline Phosphatase 60 U/L (45-117) 04/30/19 08:15 Total Protein 6.4 g/dl (6.4-8.2) 04/30/19 08:15 Albumin 3.4 g/dl (3.4-5.0) 04/30/19 08:15 RPR Titer Nonreactive (NONREACTIVE) 04/30/19 08:15 lab noted - Treatment Hospital Course: Detox Protocol Followed, Detoxed Safely, Responded well, Discharged Condition Good, Rehab Referral Accepted Patient has Accepted [facility] - Medication Discharge Medications: Ambulatory Orders Naloxone HCl [Narcan] 4 mg NS ASDIR PRN #1 spray 04/29/19 - Diagnosis (1) Opioid dependence with withdrawal Current Visit: Yes Status: Acute (2) Nicotine dependence Current Visit: Yes Status: Acute Qualifiers: Nicotine product type: cigarettes Substance use status: in withdrawal Qualified Code(s): F17.213 - Nicotine dependence, cigarettes, with withdrawal (3) Substance induced mood disorder Current Visit: Yes Status: Suspected - AMA Did Patient Leave Against Medical Advice: No COWS (PN) - Opiate Withdrawal Resting Pulse: 0= [place] 80 or Below Sweatin= Chills/Flushing Restless Observation: 0= Sits Still Pupil Size: 0= Normal to Room Light Bone or Joint Aches: 0= None Runny Nose/ Eye Tearin= None GI Upset > 30mins: 0= None Tremor Observation of Outstretched Hands: 0= None Yawning Observation: 0= None Anxiety or Irritability: 1=Feels Anxious/Irritable Goose Flesh Skin: 0=Smooth Skin COWS Score: 2
[2019-05-02] MEDS ORDERED: METHADONE HCL 5 MG TABLET (FOR DETOX USE ONLY) PO ONE (06:00)
== END 2019-05-01 12:22 | disposition home or self-care (01) | DRG 773 ==
LOC: YASAS 16:15 → Y3N 04-29 01:03
PROVIDERS: ADMIT Allergy & Immunology; ATTEND Allergy & Immunology
PROC: HZ2ZZZZ Detoxification Services for Substance Abuse Treatment (ICD-10-PCS; principal; 2019-04-29)
DX: F11.23 Opioid dependence with withdrawal (principal); F10.10 Alcohol abuse, uncomplicated; F12.20 Cannabis dependence, uncomplicated; F17.210 Nicotine dependence, cigarettes, uncomplicated; F19.24 Other psychoactive substance dependence with psychoactive substance-induced mood disorder; F20.9 Schizophrenia, unspecified; F32.9 Major depressive disorder, single episode, unspecified; J45.909 Unspecified asthma, uncomplicated; Z91.19 Patient's noncompliance with other medical treatment and regimen; Z88.8 Allergy status to other drugs, medicaments and biological substances; Z91.012 Allergy to eggs
CPT/HCPCS: 36415; 80053; 85027; 86593; 93005; 93010